=== PATIENT | female | born 1940 | race Caucasian/White ===

== ENCOUNTER 2017-04-14 06:24 | Observation (INO) | payer MEDICARE ==
[~2017-04-14] VITALS: Ht 162.6 cm; Wt 94.0 kg
[2017-04-14] VITALS (8 sets, daily range): BP systolic 111–158; BP diastolic 57–89; PULSE 75–114; RESP 17–20; TEMP 98.4–98.7; O2SAT 92–100
[~2017-04-14 06:24] MED LIST: ALPR0.5T99 PO; DILTCD180 PO; OMEP20TA39 PO; PRAD75CA PO
[2017-04-14] MEDS ORDERED: METF500T PO (06:41)
[2017-04-14] MEDS ORDERED: FURO1TAB62 PO (06:41)
[2017-04-14] MEDS ORDERED: ARMO60TA PO (06:41)
[2017-04-14] MEDS ORDERED: CARD180C5 PO (06:41)
[2017-04-14] MEDS ORDERED: POTA10CA PO (06:41)
[2017-04-14] MEDS ORDERED: LYRI75CA PO (06:41)
[2017-04-14] MEDS ORDERED: OMEP20TA PO (06:41)
[2017-04-14] MEDS ORDERED: PRAD75CA PO (06:41)
[2017-04-14] MEDS ORDERED: METO50TA11 PO (06:41)
[2017-04-14] MEDS ORDERED: ALPR0.5T3 PO (06:41)
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
[2017-04-14] MEDS ORDERED: SODIUM CHLORIDE 0.9% FLUSH 10 ML FLUSH IVF PRN (06:45)
[2017-04-14] MEDS ORDERED: ASPIRIN 81 MG CHEW TAB PO ONE (06:45)
--- NOTE | 2017-04-14 06:56 | RADRPT ---
EXAM DATE/TIME: 04/14/2017 06:38 [facility] COMPARISON: No previous studies available for comparison. INDICATIONS : Chest pain. MEDICAL HISTORY : A-fib. SURGICAL HISTORY : None. ENCOUNTER: Initial ACUITY: 1 day PAIN SCORE: 8/10 LOCATION: Bilateral chest FINDINGS: Cardiomegaly. No consolidation or effusion. Osseous structures are intact. CONCLUSION: No acute disease. Kaz Arias MD on April 14, 2017 at 6:54 Board Certified Radiologist. This report was verified electronically.
[2017-04-14 07:20] LABS: BASOPHIL % 0.2 % (0.0-2.0); EOSINOPHIL # 0.2 TH/MM3 (0-0.4); EOSINOPHIL % 1.7 % (0.0-4.0); HEMATOCRIT 36.5 % (35.0-46.0); HEMO FLAGS DIFF FINAL; LYMPH % 13.6 % (9.0-44.0); LYMPHOCYTE # 1.7 TH/MM3 (1.0-4.8); MEAN CELL VOLUME 97.5 FL (80.0-100.0); MEAN CORPUSCULAR HEMOGLOBIN 33.9 PG (27.0-34.0); MEAN CORPUSCULAR HGB CONC 34.8 % (32.0-36.0); MONO % 5.3 % (0.0-8.0); NEUT % 79.2 % (16.0-70.0); PLATELET COUNT 142 TH/MM3 (150-450); RED BLOOD COUNT 3.74 MIL/MM3 (4.00-5.30); RED CELL DISTRIBUTION WIDTH 13.8 % (11.6-17.2); WHITE BLOOD COUNT 12.6 TH/MM3 (4.0-11.0)
[2017-04-14 07:28] LABS: APTT (PATIENT) 29.2 SEC (24.3-30.1); PROTHROMBIN TIME - PATIENT 10.7 SEC (9.8-11.6)
[2017-04-14 07:37] LABS: ALT (GPT) 18 U/L (10-53); ANION GAP 7 MEQ/L (5-15); AST (GOT) 15 U/L (15-37); BICARBONATE 27.2 MEQ/L (21.0-32.0); BLOOD UREA NITROGEN 17 MG/DL (7-18); CHLORIDE 108 MEQ/L (98-107); GLOMERULAR FILTRATION RATE 83 ML/MIN (>89); POTASSIUM 3.7 MEQ/L (3.5-5.1); SODIUM (NA) 142 MEQ/L (136-145)
[2017-04-14 07:41] LABS: ALKALINE PHOSPHATASE 128 U/L (45-117); TOTAL BILIRUBIN ADULT 0.2 MG/DL (0.2-1.0)
[2017-04-14 07:44] LABS: CREATINE KINASE 70 U/L (26-192)
[2017-04-14] MEDS ORDERED: IOHEXOL 350 MG/ML 10 ML VIAL (for RAD DIAG) IV ONE (08:40)
--- NOTE | 2017-04-14 08:58 | RADRPT ---
EXAM DATE/TIME: 04/14/2017 08:27 [facility] COMPARISON: CT THORAX W/O CONTRAST, March 28, 2016, 11:30. CT PULMONARY ANGIOGRAM, March 24, 2016, 3:20. INDICATIONS : Short of breath. Right chest pain. IV CONTRAST: 75 cc Omnipaque 350 (iohexol) IV RADIATION DOSE: 17.51 CTDIvol (mGy) MEDICAL HISTORY : Gastroesophageal reflux disease. Diabetes mellitus type 2. SURGICAL HISTORY : Appendectomy. Hysterectomy. ENCOUNTER: Initial ACUITY: 1 day PAIN SCALE: 5/10 LOCATION: Right chest TECHNIQUE: Volumetric scanning of the chest was performed using a pulmonary embolism protocol MIP images were re constructed. Using automated exposure control and adjustment of the mA and/or kV according to patien t size, radiation dose was kept as low as reasonably achievable to obtain optimal diagnostic quality images. DICOM format image data is available electronically for review and comparison. Follow-up recommendations for incidentally detected pulmonary nodules are based at a minimum on nodul e size and patient risk factors according to Fleischner Society Guidelines. FINDINGS: PULMONARY ARTERIES: No filling defects are seen in the pulmonary arteries through the segmental level. LUNGS: There is a stable 1.4 cm focal area of parenchymal consolidation which appears to be associated with scarring in the anterior right upper lung. This is stable compared to the prior studies. There is dif fuse bilateral pulmonary fibrosis which is stable. No new or acute infiltrates are demonstrated. PLEURAE: There is no pleural thickening or pleural effusion. MEDIASTINUM: There is good visualization of the great vessels of the middle mediastinum. There are some stable mil dly prominent nonspecific mediastinal lymph nodes. No significant changes. MUSCULOSKELETAL: Within normal limits for patient age. Stable degenerative type changes. MISCELLANEOUS: Stable 3 cm left hepatic cyst. Stable 3.3 cm right adrenal adenoma. No significant changes compared to the prior exam. CONCLUSION: 1. No evidence of pulmonary embolism. 2. Stable 1.4 cm focal parenchymal consolidation associated with scar tissue in the anterior right up per lung. 3. Stable diffuse pulmonary fibrosis. 4. Stable 3.3 cm right adrenal adenoma. 5. Stable 3 cm left hepatic cyst. Robert Vicente MD on April 14, 2017 at 8:45 Board Certified Radiologist. This report was verified electronically.
--- NOTE | 2017-04-14 09:00 | PD ---
Physical Exam Narrative Received sign out from previous team to follow up with CT angiogram and then admit to chest pain center if negative. 76yo F with PMH of afib on pradaxa presents to the ED with c/o right sided chest pain that started at 3am and was sharp and then became pressure like. Associated with sob. Chest pain is atypical and stress test negative last year. Labs reviewed, mild leukocytosis at 12.6. BNP mildly elevated at 194. Troponin negative. CXR showed no acute disease. CT angio showed no PE. Stable 1.4cm focal parenchymal consolidation with scar tissue scaring in anterior right lung. Pulmonary fibrosis. Pt to be admitted to chest pain for serial EKG and cardiac enzymes. Data Data Last Documented VS Vital Signs Date Time Temp Pulse Resp B/P Pulse Ox O2 Delivery O2 Flow Rate FiO2 04/14/17 07:10 75 20 111/59 98 Nasal Cannula 1 04/14/17 06:30 98.4 Orders Complete Blood Count With Diff (04/14/17 06:41) Comprehensive Metabolic Panel (04/14/17 06:41) B-Type Natriuretic Peptide (04/14/17 06:41) Act Partial Throm Time (Ptt) (04/14/17 06:41) Prothrombin Time / Inr (Pt) (04/14/17 06:41) Ckmb (Isoenzyme) Profile (04/14/17 06:41) Troponin I (04/14/17 06:41) Iv Access Insert/Monitor (04/14/17 06:41) Ecg Monitoring (04/14/17 06:41) Oximetry (04/14/17 06:41) Oxygen Administration (04/14/17 06:41) Chest, Single Ap (04/14/17 06:41) Ct Pulmonary Angiogram (04/14/17 06:41) Sodium Chloride 0.9% Flush (Ns Flush) (04/14/17 06:45) Aspirin Chew (Aspirin Chew) (04/14/17 06:45) Electrocardiogram (04/14/17 ) Iohexol 350 Inj (Omnipaque 350 Inj) (04/14/17 08:40) Labs Laboratory Tests Test 04/14/17 06:45 White Blood Count 12.6 TH/MM3 Red Blood Count 3.74 MIL/MM3 Hemoglobin 12.7 GM/DL Hematocrit 36.5 % Mean Corpuscular Volume 97.5 FL Mean Corpuscular Hemoglobin 33.9 PG Mean Corpuscular Hemoglobin 34.8 % Concent Red Cell Distribution Width 13.8 % Platelet Count 142 TH/MM3 Mean Platelet Volume 11.3 FL Neutrophils (%) (Auto) 79.2 % Lymphocytes (%) (Auto) 13.6 % Monocytes (%) (Auto) 5.3 % Eosinophils (%) (Auto) 1.7 % Basophils (%) (Auto) 0.2 % Neutrophils # (Auto) 10.0 TH/MM3 Lymphocytes # (Auto) 1.7 TH/MM3 Monocytes # (Auto) 0.7 TH/MM3 Eosinophils # (Auto) 0.2 TH/MM3 Basophils # (Auto) 0.0 TH/MM3 CBC Comment DIFF FINAL Differential Comment Prothrombin Time 10.7 SEC Prothromb Time International 1.0 RATIO Ratio Activated Partial 29.2 SEC Thromboplast Time Sodium Level 142 MEQ/L Potassium Level 3.7 MEQ/L Chloride Level 108 MEQ/L Carbon Dioxide Level 27.2 MEQ/L Anion Gap 7 MEQ/L Blood Urea Nitrogen 17 MG/DL Creatinine 0.69 MG/DL Estimat Glomerular Filtration 83 ML/MIN Rate Random Glucose 128 MG/DL Calcium Level 8.8 MG/DL Total Bilirubin 0.2 MG/DL Aspartate Amino Transf 15 U/L (AST/SGOT) Alanine Aminotransferase 18 U/L (ALT/SGPT) Alkaline Phosphatase 128 U/L Total Creatine Kinase 70 U/L Troponin I LESS THAN 0.02 NG/ML B-Type Natriuretic Peptide 194 PG/ML Total Protein 6.9 GM/DL Albumin 3.3 GM/DL [facility] Supervised Visit with VENUS: No Interpretation(s) EKG: Afib at 85bpm. Normal axis No ST segment elevation or depression. Diagnosis Primary Impression: OTHER CHEST PAIN Jelly Evans DO Apr 14, 2017 09:00
[2017-04-14] MEDS ORDERED: ONDANSETRON HCL 4 MG/2 ML VIAL IV PRN (10:15)
[2017-04-14] MEDS ORDERED: ACETAMINOPHEN 500 MG CPLT PO PRN (10:15)
[2017-04-14] MEDS ORDERED: NITROGLYCERIN 0.4 MG SL 25 TABS/BTL SL PRN (10:15)
--- NOTE | 2017-04-14 11:23 | HHI.HP ---
HPI Primary Care Physician Blake Voss MD Chief Complaint Dyspnea History of Present Illness 76-year-old female with history of chronic A. fib, anxiety, and hypothyroidism presents to emergency room for further evaluation of right shoulder pain and dyspnea. Onset 3 AM. Discomfort woke her from sleep. Upon awakening right shoulder discomfort described as a stabbing pain rated 10/10. Radiation to right anterior chest. She subsequently rolled, stating "I thought I slept on my shoulder wrong Once she rolled to her back reports immediatly developing severe dyspnea stating "it hurt to breath therefore I was breathing shallow." Sitting up make breathing easier. For the follwoing 2 hours she ambulated around her apartment and/or sitting upright on her couch to comfort. Dyspnea did not improve therefore she called EMS for further evaluation. No known precipitating factors. No known relieving factors, although reports nitroglycerin 3 decreased her discomfort to level 2/10. Review of Systems General: No fatigue,weakness, fever, chills, or recent illness. Has been in her general state of health. In fact states she has been feeling so well, planning on visiting friends [id number] soon. 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 No HERNANDES, no vision changes, no dysphasia CV: As stated above. Denies any current chest pain or pressure. History of chronic A. fib currently on anticoagulation therapy. RESP: Hurts to take a deep breath, although much improved. No cough, wheeze, recent URI, or history of asthma. Quit smoking 13 years ago. GI: No nausea, vomiting, bowel changes, diarrhea, pain, distention, melena, or blood in the stool. Occasional constipation. No unintentional weight gain or weight loss. : No dysuria, urgency, or frequency. Reports history of kidney stone. Denies history of frequent UTIs. EXT: Occasional dependent lower leg edema. Left lateral thigh intermittent neuropathy. MS: No discomfort or change in ROM NEURO: Reports mild change in memory s/p removal of benign cerebral mass, however improving. No dizziness, difficulty with balance, LOC, or motor/sensory deficits. 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 PSYCH: History of anxiety and depressionreports stable on current medication regimen. No suicidal ideation. SKIN: No rashes, no concerning lesions Past Family Social History Allergies: Coded Allergies: No Known Allergies (Verified , 04/14/17) Past Medical History Hypothyroidism, chronic A. fib, anxiety, depression, GERD Past Surgical History Meningioma removed 12/10/2015, hysterectomy, appendectomy Reported Medications Active Reported Lasix (Furosemide) 20 Mg Tab 20 Mg PO DAILY Omeprazole 20 Mg Tab 20 Mg PO DAILY Metoprolol Succinate ER 24 HR (Metoprolol Succinate) 50 Mg Tab 50 Mg PO DAILY Alprazolam 0.5 Mg Tab 0.5 Mg PO Q6H PRN Potassium Chloride ER (Potassium Chloride) 10 Meq Cap 10 Meq PO DAILY [place] Thyroid (Thyroid) 60 Mg Tab 60 Mg PO DAILY Lyrica (Pregabalin) 75 Mg Cap 75 Mg PO BID Metformin (Metformin HCl) 500 Mg Tab 500 Mg PO DAILY With a meal Cardizem CD 24 HR (Diltiazem CD 24 HR) 180 Mg Caper 180 Mg PO DAILY Pradaxa (Dabigatran) 75 Mg Cap 75 Mg PO BID Active Ordered Medications Current Medications Medications (Trade) Dose Ordered Sig/Maikol Route Start Time Stop Time Status Last Admin (NS Flush) 2 ml UNSCH PRN IVF 04/14/17 06:45 (NS Flush) 2 ml BID IV FLUSH 04/14/17 21:00 (Tylenol) 500 mg Q4H PRN PO 04/14/17 10:15 (Zofran Inj) 4 mg Q6H PRN IV 04/14/17 10:15 (Nitrostat Sl) 0.4 mg Q5M PRN SL 04/14/17 10:15 (Aspirin) 325 mg DAILY PO 04/15/17 09:00 Family History Noncontributory for early onset cardiovascular disease. Father at a young age. Mother lived to age 92. No siblings. Social History No known diabetes, hyperlipidemia, coronary artery disease, or hypertension. Currently taking metformin to help lose weight at the direction of her PCP. Quit smoking 13 years ago. Denies any alcohol or illegal drug use. Endorses an active lifestyle. 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 Past cardiac testing No recent stress testing. Never required a cardiac catheterization. 03/25/16 Lexiscan-unremarkable, EF >70% Patient's oracle forms developer Dr. Hernández. Physical Exam Vital Signs Vital Signs Date Time Temp Pulse Resp B/P Pulse Ox O2 Delivery O2 Flow Rate FiO2 04/14/17 10:22 98 20 136/89 100 Nasal Cannula 2 04/14/17 07:10 75 20 111/59 98 Nasal Cannula 1 04/14/17 06:44 94 Nasal Cannula 2 04/14/17 06:44 19 94 Nasal Cannula 2 04/14/17 06:34 103 19 94 Nasal Cannula 2 04/14/17 06:30 98.4 103 17 123/57 94 Physical Exam GENERAL: Alert WN, WD, NAD, pleasant, obese, elderly female who appears younger than stated age HEAD: NC, AT EYES: Sclera clear, conjunctiva without injection, pupils equal and round ENT: Mucous membranes pink and moist CV: Irregular, regular rate, without murmur, rub, gallop, no JVD, S1-S2 no S3- S4. RESP: Clear lungs throughout bilateral, no crackles, wheeze, rhonchi, symmetrical chest rise, nonlabored, able to speak in full sentences ABD: Soft, NT, ND, no masses, positive bowel tones EXT: Pulses +24, trace dependent lower extremity edema MS: Normal tone 4 extremities, pain reproduced with palpation of right shoulder. Nontender chest wall. no obvious deformities, full range of motion NEURO: CN II through CN XII grossly intact, motor strength 5/5, dystonia head tumor PSYCH: A+O 3, pleasant affect, appropriate speech, appropriate mood and affect , insight and judgment SKIN: Normal turgor, normal texture Laboratory Laboratory Tests Test 04/14/17 06:45 White Blood Count 12.6 Red Blood Count 3.74 Hemoglobin 12.7 Hematocrit 36.5 Mean Corpuscular Volume 97.5 Mean Corpuscular Hemoglobin 33.9 Mean Corpuscular Hemoglobin 34.8 Concent Red Cell Distribution Width 13.8 Platelet Count 142 Mean Platelet Volume 11.3 Neutrophils (%) (Auto) 79.2 Lymphocytes (%) (Auto) 13.6 Monocytes (%) (Auto) 5.3 Eosinophils (%) (Auto) 1.7 Basophils (%) (Auto) 0.2 Neutrophils # (Auto) 10.0 Lymphocytes # (Auto) 1.7 Monocytes # (Auto) 0.7 Eosinophils # (Auto) 0.2 Basophils # (Auto) 0.0 CBC Comment DIFF FINAL Differential Comment Prothrombin Time 10.7 Prothromb Time International 1.0 Ratio Activated Partial 29.2 Thromboplast Time Sodium Level 142 Potassium Level 3.7 Chloride Level 108 Carbon Dioxide Level 27.2 Anion Gap 7 Blood Urea Nitrogen 17 Creatinine 0.69 Estimat Glomerular Filtration 83 Rate Random Glucose 128 Calcium Level 8.8 Total Bilirubin 0.2 Aspartate Amino Transf 15 (AST/SGOT) Alanine Aminotransferase 18 (ALT/SGPT) Alkaline Phosphatase 128 Total Creatine Kinase 70 Troponin I LESS THAN 0.02 B-Type Natriuretic Peptide 194 Total Protein 6.9 Albumin 3.3 Result Diagram: 04/14/1764404/14/17644 Imaging Last Impressions Chest X-Ray 04/14/17640 Signed Impressions: Service Date/Time: Friday, April 14, 2017 06:38 - CONCLUSION: No acute disease. Kaz Arias MD CT Angiography 04/14/17640 Signed Impressions: Service Date/Time: Friday, April 14, 2017 08:27 - CONCLUSION: 1. No evidence of pulmonary embolism. 2. Stable 1.4 cm focal parenchymal consolidation associated with scar tissue in the anterior right upper lung. 3. Stable diffuse pulmonary fibrosis. 4. Stable 3.3 cm right adrenal adenoma. 5. Stable 3 cm left hepatic cyst. Robert Vicente MD Course EKG A. fib, no ST T segment change Assessment and Plan Assessment and Plan #1 Atypical chest painadmitted to chest pain center. Ruled out with 3 sets of EKGs, cardiac enzymes, monitor on telemetry. Will be seen and evaluated by Dr. Priscilla Hurtado. Will also call patient's oracle forms developer, Dr. Hernández to make aware of patient's arrival to chest pain center. #2 Afib-continue Cardizem, Pradaxa #3 Dyspnea-no evidence of PE, keep spo2 >92% #4 GERD-continue omeprazole #5 Musculoskeletal right shoulder pain-mostly likely arthritic in nature, encouraged use of heating pain and using Tylenol as needed for pain, avoiding NSAIDs as she takes Pradaxa. 13:10-Call out to Dr. Hernández to notify him of patient's arrival to chest pain center. 13:20-Return call from Dr. Hernández received. Updated MD on patient's arrival to [facility] and symptoms. MD agrees pain mostly likely musculoskeletal and had a received normal chemical stress test last year. Dr. Hernández okay with no further testing, but will defer decided to attending physician Dr. Hurtado. 17:10-Seen and evaluated by Dr. Hurtado. No further cardiac testing warranted as discomfort and pain with breathing has completely resolved. Follow up with PCP and cardiology as discussed. Cherelle Ho Apr 14, 2017 11:23
[2017-04-14 11:32] LABS: CREATINE KINASE 59 U/L (26-192)
[2017-04-14 14:49] LABS: CREATINE KINASE 58 U/L (26-192)
[2017-04-14] MEDS ORDERED: METOPROLOL SUCCINATE 50 MG EXTENDED RELEASE TAB PO SCH (15:00)
[2017-04-14] MEDS ORDERED: THYROID 60 MG TAB PO SCH (16:00)
[2017-04-14] MEDS ORDERED: DILTIAZEM-CD 180 MG CAP ER PO SCH (16:00)
[2017-04-14] MEDS ORDERED: PANTOPRAZOLE SOD 20 MG DELAYED RELEASE TAB PO SCH (16:00)
--- NOTE | 2017-04-14 16:45 | EKG ---
Date Performed: 04/14/2017 Time Performed: 06:29:19 PTAGE: 76 years EKG: ATRIAL FIBRILLATION NONSPECIFIC T-WAVE ABNORMALITY ABNORMAL RHYTHM ECG Since PREVIOUS TRACING , no significant change noted DOCTOR: Priscilla Hurtado Interpretating Date/Time 04/14/2017 16:44:26
--- NOTE | 2017-04-14 16:51 | EKG ---
Date Performed: 04/14/2017 Time Performed: 10:46:14 PTAGE: 76 years EKG: ATRIAL FIBRILLATION ABNORMAL RHYTHM ECG Since PREVIOUS TRACING , no significant change noted PREVIOUS TRACIN04/14/2017 06.29 DOCTOR: Priscilla Hurtado Interpretating Date/Time 04/14/2017 16:50:08
--- NOTE | 2017-04-14 17:15 | HHI.DCPOC ---
Discharge Care Plan Diagnosis: (1) Right shoulder pain (2) Musculoskeletal chest pain (3) Dyspnea, unspecified Goals to Promote Your Health * To prevent worsening of your condition and complications * To maintain your health at the optimal level Directions to Meet Your Goals Take your medications as prescribed Follow your dietary instruction Follow activity as directed Keep your appointments as scheduled Take your immunizations and boosters as scheduled If your symptoms worsen call your PCP, if no PCP go to Urgent Care Center or Emergency Room Smoking is Dangerous to Your Health. Avoid second hand smoke Call the 24-hour hour crisis hotline for domestic abuse at Cherelle Ho Apr 14, 2017 17:15
[2017-04-14] MEDS ORDERED: DABIGATRAN ETEXILATE 75 MG CAP PO SCH (18:00)
[2017-04-14] MEDS ORDERED: SODIUM CHLORIDE 0.9% FLUSH 10 ML FLUSH IV FLUSH SCH (21:00)
[2017-04-15] MEDS ORDERED: ASPIRIN 325 MG TAB PO SCH (09:00)
--- NOTE | 2017-04-15 15:42 | EKG ---
Date Performed: 04/14/2017 Time Performed: 14:14:47 PTAGE: 76 years EKG: ATRIAL FIBRILLATION WITH RAPID VENTRICULAR RESPONSE ABNORMAL RHYTHM ECG PREVIOUS TRACING : 04/14/2017 10.46 Since previous tracing, no significant change noted DOCTOR: Silvio Newberry Interpretating Date/Time 04/15/2017 15:40:11
== END 2017-04-14 18:47 | disposition home or self-care (01) ==
LOC: NEPC 06:24 → NEDA 09:39 → NEPFCDU 12:06
PROVIDERS: ADMIT Internal Medicine Interventional Cardiology; ATTEND Internal Medicine Interventional Cardiology
DX: R07.2 Precordial pain (principal); Z86.011 Personal history of benign neoplasm of the brain; K21.9 Gastro-esophageal reflux disease without esophagitis; I50.9 Heart failure, unspecified; I48.2 Chronic atrial fibrillation; E11.9 Type 2 diabetes mellitus without complications; E03.9 Hypothyroidism, unspecified; M25.511 Pain in right shoulder; M17.9 Osteoarthritis of knee, unspecified; F41.9 Anxiety disorder, unspecified; F32.9 Major depressive disorder, single episode, unspecified; Z79.899 Other long term (current) drug therapy; Z79.84 Long term (current) use of oral hypoglycemic drugs; D72.829 Elevated white blood cell count, unspecified; J84.10 Pulmonary fibrosis, unspecified; Z87.891 Personal history of nicotine dependence; D35.01 Benign neoplasm of right adrenal gland; K76.89 Other specified diseases of liver
CPT/HCPCS: 71010; 71275; 80053; 82550; 83880; 84484; 85025; 85610; 85730; 93005; 99285; G0378; Q9967

== ENCOUNTER 2018-03-20 14:30 | Observation (INO) ==
--- NOTE | 2018-03-20 15:26 | ED ---
HPI General Chief complaint: Chest Pain Stated complaint: chest pain Time Seen by Provider: 03/20/18 15:04 History of Present Illness HPI narrative: Patient 77-year-old female history of prediabetes on metformin, history of atrial fibrillation presents emergency department for evaluation of GERD but this feels like some different. Mild shortness of breath, no abdominal pain nausea vomiting, no dizziness. Patient states his symptoms started about 2 hours prior to presentation she states she had a stress tests some months ago, she cannot remember where it was done. She normally follows out [facility] hospital became here today because it was closer to home. States symptoms are fairly mild, cannot think of any alleviating or exacerbating factors, context and associated signs symptoms as above Related Data Home Medications Medication Instructions Recorded Confirmed alprazolam 0.5 mg PO DAILY 03/20/18 03/20/18 dabigatran etexilate [Pradaxa] 75 mg PO BID 03/20/18 03/20/18 diltiazem HCl [DILT-XR] 180 mg PO BID 03/20/18 03/20/18 furosemide [Lasix] 20 mg PO DAILY 03/20/18 03/20/18 gabapentin 300 mg PO TID 03/20/18 03/20/18 levothyroxine 90 mcg PO DAILY 03/20/18 03/20/18 metformin 500 mg PO BID 03/20/18 03/20/18 metoprolol allan-hydrochlorothiaz 50 mg PO BID 03/20/18 03/20/18 omeprazole 20 mg PO DAILY 03/20/18 03/20/18 rosuvastatin 5 mg PO DAILY 03/20/18 03/20/18 Allergies Allergy/AdvReac Type Severity Reaction Status Date / Time No Known Allergies Allergy Verified 03/20/18 15:08 Review of Systems Except as stated in HPI: all other systems reviewed are negative [facility] Medical History Medical History Atrial fibrillation (Acute) Brain tumor (Acute) History of hysterectomy (Acute) Hypertension (Acute) Shingles outbreak (Acute) Surgical History Surgical History Hx of appendectomy (Acute) Social History Social History Substance History: No History of Abuse Second Hand Smoke Exposure: No Smoking Status: Former smoker Tobacco Type: Cigarettes How Often Do You Have a Drink Containing Alcohol: Never Recent Travel in [facility] within the Last 8 Weeks: No Recent Out of Country Travel within the Last 8 Weeks: No Immunization History Tetanus Immunization: >5 Years Hx Influenza Vaccine This Season: Yes Exam Narrative Exam Narrative: GENERAL: Well-developed overweight female no obvious distress SKIN: Focused skin assessment warm/dry. HEAD: Atraumatic. Normocephalic. EYES: Pupils equal and round. No scleral icterus. No injection or drainage. ENT: No nasal bleeding or discharge. Mucous membranes pink and moist. NECK: Trachea midline. No JVD. CARDIOVASCULAR: Irregularly irregular with normal rate. No murmur appreciated. RESPIRATORY: No accessory muscle use. Clear to auscultation. Breath sounds equal bilaterally. GASTROINTESTINAL: Abdomen soft, non-tender, nondistended. Hepatic and splenic margins not palpable. MUSCULOSKELETAL: No obvious deformities. No clubbing. No cyanosis. No edema. NEUROLOGICAL: Awake and alert. No obvious cranial nerve deficits. Motor grossly within normal limits. Normal speech. PSYCHIATRIC: Appropriate mood and affect; insight and judgment normal. Course Initial Documented Vital Signs Temperature 97.6 F 03/20/18 15:00 Pulse Rate 87 03/20/18 15:00 Respiratory Rate 15 03/20/18 15:00 Blood Pressure 159/86 H 03/20/18 15:00 Pulse Oximetry 97 03/20/18 15:00 Last Documented Vital Signs Temperature 97.6 F 03/20/18 15:00 Pulse Rate 91 H 03/20/18 15:15 Respiratory Rate 22 03/20/18 15:15 Blood Pressure 152/81 H 03/20/18 15:15 Pulse Oximetry 99 03/20/18 15:15 Medical Decision Making [facility] Narrative Medical decision making narrative: Patient room to the emergency department, initial workup shows an EKG with atrial fibrillation otherwise within normal limits, no signs of acute ischemia. Troponin negative, chest x-ray negative. Patient was given a full dose aspirin, chest pain-free without further interventions. Discussed with her stress testing, we have gotten her records from [facility] and she has not had a stress test there is at least getting back to 2016, she had an echocardiogram at that time for new onset atrial fibrillation. She does follow with Dr. Shaw here in town. Patient would like to stay in the hospital get stress testing done, she does have [facility] insurance, discussed with registration and apparently she is covered for this observation stay. Patient therefore agreed to stay. Differential Diagnosis Differential Diagnosis: ACS, KS, GERD, pneumonia, aortic dissection highly unlikely, Lab Data Result diagrams: 03/20/18 15:45 03/20/18 15:45 Lab Results 03/20/18 03/20/18 03/20/18 Range/Units 15:45 15:45 15:45 WBC 8.2 (4.0-11.0) th/mm3 RBC 4.11 (4.00-5.30) mil/mm3 Hgb 12.9 (11.6-15.3) gm/dL Hct 37.8 (35.0-46.0) % MCV 92.0 (80.0-100.0) fL MCH 31.3 (27.0-34.0) pg MCHC 34.0 (32.0-36.0) % RDW 14.2 (11.6-17.2) % Plt Count 158 (150-450) th/mm3 MPV 11.2 H (7.0-11.0) fL Neut % (Auto) 63.7 (16.0-70.0) % Lymph % (Auto) 26.2 (9.0-44.0) % [place] % (Auto) 6.5 (0.0-8.0) % Eos % (Auto) 3.1 (0.0-4.0) % Baso % (Auto) 0.5 (0.0-2.0) % Neut # (Auto) 5.2 (1.8-7.7) th/mm3 Lymph # (Auto) 2.2 (1.0-4.8) th/mm3 [place] # (Auto) 0.5 (0.0-0.9) th/mm3 Eos # (Auto) 0.3 (0.0-0.4) th/mm3 Baso # (Auto) 0.0 (0.0-0.2) th/mm3 WBC Differential . Differential Comment Auto diff final PT 10.4 (9.8-11.6) sec INR 1.0 Ratio APTT 28.0 (24.3-30.1) sec Sodium 142 (136-145) meq/L Potassium 4.1 (3.5-5.1) meq/L Chloride 106 (98-107) meq/L Carbon Dioxide 27.2 (21.0-32.0) meq/L Anion Gap 9 (5-15) meq/L BUN 10 (7-18) mg/dL Creatinine 0.62 (0.50-1.00) mg/dL Estimated GFR Greater than 89 (>89) mL/min Random Glucose 88 (74-106) mg/dL Calcium 9.2 (8.5-10.1) mg/dL Magnesium 1.4 L (1.5-2.5) mg/dL Total Bilirubin 0.3 (0.2-1.0) mg/dL AST 13 L (15-37) U/L ALT 20 (10-53) U/L Alkaline Phosphatase 112 (45-117) U/L Total Creatine Kinase 63 (26-192) U/L Troponin I Less than 0.02 L (0.02-0.05) ng/mL Total Protein 7.6 (6.4-8.2) g/dL Albumin 3.5 (3.4-5.0) g/dL Imaging Data Radiologist's impression: Chest X-Ray 03/20/18 15:22 CONCLUSION: Cardiomegaly and findings of vascular congestion without overt failure. Discharge Plan Discharge Disposition Patient Disposition: 30 Still Patient Discharge Details Diagnosis: Chest pain Physicians Team ED Provider: David Marshall Primary Care Provider: Marcelino Garcia Attending Provider: Carlos Echeverria Discharge Interventions Interventions: Vital Signs Last Done: 03/20/18 15:15 Status ED Status: Admitted Observation Patient
--- NOTE | 2018-03-20 15:46 | XR ---
EXAM DATE: 03/20/2018 3:35 PM EDT AGE/SEX: 77 years / Female INDICATIONS: Chest pain. CLINICAL DATA: This is the patient's initial encounter. Patient reports that signs and symptoms have been present for 1 day and indicates a pain score of 10/10. MEDICAL/SURGICAL HISTORY: . A-fib. None. COMPARISON: [facility] [place], CHEST SINGLE AP, 04/14/2017. . FINDINGS: The cardiac silhouette is enlarged in transverse diameter. There is prominence of the central pulmona ry vasculature with indistinct vascular margins compatible with vascular congestion but no evidence o f overt failure. No pleural effusions are identified. The aortic knob is prominent with tortuosity of the descending thoracic aorta. CONCLUSION: Cardiomegaly and findings of vascular congestion without overt failure. Electronically signed by: Silvio Kruse MD 03/20/2018 3:44 PM EDT
[2018-03-20 16:48] LABS: Alanine Aminotransferase 20 U/L (10-53); Albumin 3.5 g/dL (3.4-5.0); Anion Gap 9 meq/L (5-15); Aspartate Aminotransferase 13 U/L (15-37); Blood Urea Nitrogen 10 mg/dL (7-18); Calcium 9.2 mg/dL (8.5-10.1); Carbon Dioxide 27.2 meq/L (21.0-32.0); Chloride 106 meq/L (98-107); Glomerular Filtration Rate Greater Than 89 mL/min (>89); Glucose,Random 88 mg/dL (74-106); Magnesium 1.4 mg/dL (1.5-2.5); Potassium 4.1 meq/L (3.5-5.1); Prothrombin Time 10.4 sec (9.8-11.6); Sodium 142 meq/L (136-145)
[2018-03-20 16:52] LABS: Alkaline Phosphatase 112 U/L (45-117); Total Protein 7.6 g/dL (6.4-8.2)
[2018-03-20 16:54] LABS: Creatine Kinase 63 U/L (26-192)
[2018-03-20 17:04] LABS: Baso % (Auto) 0.5 % (0.0-2.0); Eos # (Auto) 0.3 th/mm3 (0.0-0.4); Eos % (Auto) 3.1 % (0.0-4.0); Hematocrit 37.8 % (35.0-46.0); Hemoglobin 12.9 gm/dL (11.6-15.3); Lymph # (Auto) 2.2 th/mm3 (1.0-4.8); Lymph % (Auto) 26.2 % (9.0-44.0); Mean Corpuscular Hemoglobin 31.3 pg (27.0-34.0); Mean Platelet Volume 11.2 fL (7.0-11.0); Mono # (Auto) 0.5 th/mm3 (0.0-0.9); Mono % (Auto) 6.5 % (0.0-8.0); Neut # (Auto) 5.2 th/mm3 (1.8-7.7); Neut % (Auto) 63.7 % (16.0-70.0); Platelet Count 158 th/mm3 (150-450); Red Blood Count 4.11 mil/mm3 (4.00-5.30); Red Cell Distribution Width 14.2 % (11.6-17.2); White Blood Count 8.2 th/mm3 (4.0-11.0)
[2018-03-20] MEDS ORDERED: Magnesium Oxide 400 MG Tablet PO ONE (18:11)
[2018-03-20 19:44] LABS: Creatine Kinase 45 U/L (26-192)
[2018-03-20 22:18] LABS: Creatine Kinase 43 U/L (26-192)
[2018-03-21] MEDS ORDERED: Acetaminophen 500 MG Tablet PO PRN (07:39)
--- NOTE | 2018-03-21 09:45 | P.HPCA ---
History of Present Illness Service: Chest pain center Primary Care Physician: Marcelino Garcia DO Chief Complaint: A "lump" right upper chest History of Present Illness: Very pleasant 77-year-old lady followed by Dr. Andrew is a primary care physician and Dr. Hernández for cardiology. She has a history of atrial fibrillation prediabetes long-standing GERD recent brain surgery for a benign tumor hypertension and shingles involving the inner portion of her mouth. She woke yesterday and after taking a glass of baking soda for her GERD developed what she describes as feeling of a lump in her right mid chest. This discomfort radiated down into her epigastric area and came and went in waves. These waves lasting only a few seconds but have been recurring frequently and continued to the present. She has considerable amount of symptoms from her GERD but this current presentation felt somewhat different and concerned her enough to come to the emergency room she is followed on a regular basis by Dr. Hernández for her atrial fibrillation but has not had a stress test to her knowledge. She has had an echocardiogram fairly recently at [facility]. There seem to be no precipitating or relieving factors for this discomfort and no associated symptoms other than possibly some mild shortness of breath. Inpatient Certification: I certify that the inpatient services were ordered in accordance with Medicare regulations governing the order. This includes certification that hospital inpatient services are reasonable and necessary and in the case of services not specified as inpatient-only under 42 CFR 419.22(n), that they are appropriately provided as inpatient services in accordance to with the 2-midnight benchmark under 43 CFR 412.3(e) Review of Systems All other systems reviewed negative except as stated in HPI (She does have a chronic tremor) [facility] - History History Provided By: Patient - Medical History Medical History: Medical History (Last Updated 03/20/18 @ 15:14 by Daron Lynne) Atrial fibrillation Brain tumor History of hysterectomy Hypertension Shingles outbreak - Surgical History Surgical History: Surgical History (Last Updated 03/21/18 @ 09:39 by Carlos Echeverria MD) Hx of appendectomy (Acute) - Family History Family History: Family History (Last Updated 03/21/18 @ 09:39 by Carlos Echeverria MD) Father No problems noted. Mother Patient killed Renal cancer - Tobacco History Second Hand Smoke Exposure: No Tobacco Use In Past 30 Days: No Smoking Status: Former smoker Tobacco Type: Cigarettes - Alcohol History How Often Do You Have a Drink Containing Alcohol: Never - Substance Use History Substance History: No History of Abuse - Travel History Recent Travel in the [place] Within the Last 8 Weeks: No Recent Travel Out of the Country Within the Last 8 Weeks: No - Immunization History Tetanus Immunization: >5 Years Hx Influenza Vaccine This Season: Yes Medications and Allergies Active Medications: Active Medications Acetaminophen (Tylenol) 500 mg PO Q4H PRN PRN Reason: HEADACHE Nitroglycerin (Nitrostat Sl) 0.4 mg SL Q5M PRN PRN Reason: CHEST PAIN Sodium Chloride (Ns Flush) 2 ml IV.FLUSH BID KYRA Last Admin: 03/21/18 08:40 Dose: 2 ml Sodium Chloride (Ns Flush) 2 ml IV.FLUSH PRN PRN PRN Reason: FLUSH AFTER USING IV ACCESS Allergies Allergy/AdvReac Type Severity Reaction Status Date / Time No Known Allergies Allergy Verified 03/20/18 15:08 Home Medications Medication Instructions Recorded Confirmed Type alprazolam 0.5 mg PO DAILY 03/20/18 03/20/18 History dabigatran etexilate [Pradaxa] 75 mg PO BID 03/20/18 03/20/18 History diltiazem HCl [DILT-XR] 180 mg PO BID 03/20/18 03/20/18 History furosemide [Lasix] 20 mg PO DAILY 03/20/18 03/20/18 History gabapentin 300 mg PO TID 03/20/18 03/20/18 History levothyroxine 90 mcg PO DAILY 03/20/18 03/20/18 History metformin 500 mg PO BID 03/20/18 03/20/18 History metoprolol allan-hydrochlorothiaz 50 mg PO BID 03/20/18 03/20/18 History omeprazole 20 mg PO DAILY 03/20/18 03/20/18 History rosuvastatin 5 mg PO DAILY 03/20/18 03/20/18 History Exam Vital signs: Vital Signs 03/20/18 15:00 03/20/18 15:15 03/20/18 20:15 Temperature 97.6 F 98.1 F Pulse Rate 87 91 H 77 Respiratory Rate 15 22 17 Blood Pressure 159/86 H 152/81 H 150/71 H Pulse Oximetry 97 99 95 03/20/18 23:50 03/21/18 03:28 03/21/18 05:32 Temperature 97.9 F 97.9 F Pulse Rate 82 90 Respiratory Rate 17 17 Blood Pressure 129/75 152/84 H Pulse Oximetry 96 95 95 03/21/18 07:15 03/21/18 07:52 03/21/18 07:59 Temperature 97.8 F Pulse Rate 100 H Respiratory Rate 12 18 Blood Pressure 130/85 Pulse Oximetry 95 95 03/21/18 08:00 Temperature Pulse Rate Respiratory Rate Blood Pressure Pulse Oximetry 95 Intake & Output 03/20/18 03/21/18 03/21/18 18:59 06:59 18:59 Weight 90.718 kg Other: # Voids 1 Narrative: Pleasant well-nourished well-developed lady sitting on bedside Head normocephalic atraumatic Eyes PERRLA EOMI mild bilateral cataracts sclera clear Mouth mucous membranes moist tongue well papillated. 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 Cranial nerves are intact and motor strength intact all 4 extremities Psychiatric pleasant alert with good attitude Results 03/20/18 15:45 03/20/18 15:45 Cardiac Enzymes 03/20/18 03/20/18 03/20/18 Range/Units 15:45 18:35 21:10 AST 13 L (15-37) U/L Troponin I Less than 0.02 L Less than 0.02 L Less than 0.02 L (0.02-0.05) ng/mL Coagulation 03/20/18 Range/Units 15:45 PT 10.4 (9.8-11.6) sec APTT 28.0 (24.3-30.1) sec CBC 03/20/18 Range/Units 15:45 WBC 8.2 (4.0-11.0) th/mm3 RBC 4.11 (4.00-5.30) mil/mm3 Hgb 12.9 (11.6-15.3) gm/dL Hct 37.8 (35.0-46.0) % Plt Count 158 (150-450) th/mm3 Neut # (Auto) 5.2 (1.8-7.7) th/mm3 Lymph # (Auto) 2.2 (1.0-4.8) th/mm3 [place] # (Auto) 0.5 (0.0-0.9) th/mm3 Eos # (Auto) 0.3 (0.0-0.4) th/mm3 Baso # (Auto) 0.0 (0.0-0.2) th/mm3 Comprehensive Metabolic Panel 03/20/18 Range/Units 15:45 Sodium 142 (136-145) meq/L Potassium 4.1 (3.5-5.1) meq/L Chloride 106 (98-107) meq/L Carbon Dioxide 27.2 (21.0-32.0) meq/L BUN 10 (7-18) mg/dL Creatinine 0.62 (0.50-1.00) mg/dL Calcium 9.2 (8.5-10.1) mg/dL AST 13 L (15-37) U/L ALT 20 (10-53) U/L Alkaline Phosphatase 112 (45-117) U/L Total Protein 7.6 (6.4-8.2) g/dL Albumin 3.5 (3.4-5.0) g/dL Intake and Output 03/20/18 03/21/18 03/21/18 22:59 06:59 14:59 Other: # Voids 1 Weight 90.718 kg Caprini VTE Risk Assessment Caprini VTE Risk Assessment: No/Low Risk (score <= 1) (Patient is on Pradaxa) Caprini Risk Assessment Model: Point Value = 1 Point Value = 2 Point Value = 3 Point Value = 5 Age 41-60 Minor surgery BMI > 25 kg/m2 Swollen legs Varicose veins or History of unexplained or recurrent spontaneous Oral contraceptives or hormone replacement Sepsis (< 1 month) Serious lung disease, including pneumonia (< 1 month) Abnormal pulmonary function Acute myocardial infarction Congestive heart failure (< 1 month) History of inflammatory bowel disease Medical patient at bed rest Age 61-74 Arthroscopic surgery Major open surgery (> 45 min) Laparoscopic surgery (> 45 min) Malignancy Confined to bed (> 72 hours) Immobilizing plaster cast Central venous access Age >= 75 History of VTE Family history of VTE Factor V Leiden Prothrombin [id number] Lupus anticoagulant Anticardiolipin antibodies Elevated serum homocysteine Heparin-induced thrombocytopenia Other congenital or acquired thrombophilia Stroke (< 1 month) Elective arthroplasty Hip, pelvis, or leg fracture Acute spinal cord injury (< 1 month) Prophylaxis Regimen: Total Risk Factor Score Risk Level Prophylaxis Regimen 0-1 Low Early ambulation 2 Moderate Order ONE of the following: *Sequential Compression Device (SCD) *Heparin 5000 units SQ BID 3-4 Higher Order ONE of the following medications: *Heparin 5000 units SQ TID *Enoxaparin/Lovenox 40 mg SQ daily (WT < 150 kg, CrCl > 30 mL/min) *Enoxaparin/Lovenox 30 mg SQ daily (WT < 150 kg, CrCl > 10-29 mL/min) *Enoxaparin/Lovenox 30 mg SQ BID (WT < 150 kg, CrCl > 30 mL/min) AND/OR *Sequential Compression Device (SCD) 5 or more Highest Order ONE of the following medications: *Heparin 5000 units SQ TID (Preferred with Epidurals) *Enoxaparin/Lovenox 40 mg SQ daily (WT < 150 kg, CrCl > 30 mL/min) *Enoxaparin/Lovenox 30 mg SQ daily (WT < 150 kg, CrCl > 10-29 mL/min) *Enoxaparin/Lovenox 30 mg SQ BID (WT < 150 kg, CrCl > 30 mL/min) AND *Sequential Compression Device (SCD) Assessment and Plan - Plan Patient's presentation is consistent with GI symptomatology and she has ruled out for ACS using standard chest pain center protocol. She has good outpatient follow-up both with primary care physician in with cardiology. However prior to discharge she will be evaluated with a nuclear stress test since she has not had one in recent past. Discussed Condition With: Discussed the plan with patient and she is in full agreement Discharge Planning: If nuclear stress testing is positive Dr. Hernández will be contacted for further intervention and instructions. If negative she will be discharged to follow-up with Dr. Andrew for further GI evaluation and Dr. Hernández for ongoing management of her atrial fibrillation and cardiovascular issues H&P: Quality - VTE Deep Vein Thrombosis/Pulmonary Embolism Present on Admission: No
[2018-03-21] MEDS ORDERED: Regadenoson Inj 0.4 MG/5 ML Syringe IV.PUSH ONE (10:20)
--- NOTE | 2018-03-21 11:32 | NM ---
EXAM DATE: 03/21/2018 11:28 AM EDT AGE/SEX: 77 years / Female INDICATIONS:Angina. Atrial fibrillation Right sided chest pain. CLINICAL DATA: This is the patient's initial encounter. Patient reports that signs and symptoms have been present for 1 day and indicates a pain score of 2/10. MEDICAL/SURGICAL HISTORY: Hypertension. Hysterectomy. COMPARISON: No prior exams available for comparison. DOSE: 8.1 mCi Tc 99m Myoview at rest 26.3 mCi [id number] at stress 0.4 mg Lexiscan STRESS SYMPTOMS: None. EJECTION FRACTION: 66 % TECHNIQUE: The patient underwent pharmacologic stress with infusion of prescribed dose. Continuous ECG tracing was monitored during stress. Gated SPECT imaging was performed after stress and conventi onal SPECT imaging was performed at rest. The examination was performed on a SPECT/CT scanner, both attenuation and non-corrected datasets were reviewed. FINDINGS: Distribution: The maximum perfused segment at stress is in the septal wall. Perfusion Study: The pattern of perfusion at stress is within normal limits. Gated Study: There are intact wall motion and wall thickening without hypokinetic or dyskinetic segm ents. The ejection fraction is calculated at 66%. RISK CATEGORY: Low (<1% Annual Motality Rate) CONCLUSION: 1. No evidence of fixed or reversible defect. Normal wall motion is noted. Electronically signed by: Tressa Verduzco MD 03/21/2018 11:31 AM EDT
[2018-03-21] MEDS ORDERED: dilTIAZem CD 180 MG Capsule PO SCH (12:00)
[2018-03-21] MEDS ORDERED: Furosemide 20 MG Tablet PO SCH (12:00)
[2018-03-21] MEDS ORDERED: Pantoprazole Sodium 20 MG DR Tablet PO SCH (13:00)
[2018-03-21] MEDS ORDERED: Gabapentin 300 MG Capsule PO SCH (13:00)
[2018-03-21] MEDS ORDERED: METOPROLOL SU HYDROCHLOROTHIAZ PO SCH (13:15)
[2018-03-21] MEDS ORDERED: hydroCHLOROthiazide 25 MG Tablet PO SCH (14:00)
--- NOTE | 2018-03-22 14:49 | ECG ---
Date Performed: 03/20/2018 Time Performed: 18:41:35 PTAGE: 77 years EKG: ATRIAL FIBRILLATION ABNORMAL RHYTHM ECG PREVIOUS TRACING : 03/20/2018 15.10 Since previous tracing, no significant change noted DOCTOR: Silvio Newberry Interpretating Date/Time 03/22/2018 14:47:25
--- NOTE | 2018-03-22 14:50 | ECG ---
Date Performed: 03/20/2018 Time Performed: 15:10:33 PTAGE: 77 years EKG: ATRIAL FIBRILLATION ABNORMAL RHYTHM ECG INTERPRETATION BASED ON A DEFAULT AGE OF 40 YEARS PREVIOUS TRACING : 04/14/2017 14.14 Since previous tracing, no significant change noted DOCTOR: Silvio Newberry Interpretating Date/Time 03/22/2018 14:48:12
--- NOTE | 2018-03-22 14:54 | TR ---
Date Performed: 03/21/2018 Time Performed: 10:32:40 DOCTOR: Silvio Newberry DRUG LIST: CLINICAL HISTORY: CHEST PAIN REASON FOR TEST: REASON FOR ENDING: OBSERVATION: CONCLUSION: COMMENTS: Lexiscan stress test was performed under standard four minute protocol. Radionuclide was injected one minute prior to ending the test. No electrocardiographic abormalities were present t o suggest ischemia. Nuclear imaging and interpretation are pending.
== END 2018-03-21 16:25 | disposition home or self-care (01) ==
LOC: NEPE 14:30 → NEDA 14:30 → NEPHCDU 14:30
PROVIDERS: ADMIT Internal Medicine Interventional Cardiology; ATTEND Internal Medicine Interventional Cardiology
DX: Z68.34 Body mass index [BMI] 34.0-34.9, adult; Z87.891 Personal history of nicotine dependence; R07.89 Other chest pain; R73.03 Prediabetes; I11.9 Hypertensive heart disease without heart failure; Z79.899 Other long term (current) drug therapy; Z79.02 Long term (current) use of antithrombotics/antiplatelets; I48.91 Unspecified atrial fibrillation; K21.9 Gastro-esophageal reflux disease without esophagitis; E66.3 Overweight